=== PATIENT | female | born 1965 | race African-American/Black ===

== ENCOUNTER 2024-04-29 16:53 | Inpatient (IN) | payer OTHER ==
[2024-04-29 18:37] VITALS: BMI 17.8
[2024-04-29] MEDS ORDERED: hydrOXYzine PAMOATE 25 MG CAPSULE (FP) PO PRN (19:02)
[2024-04-29] MEDS ORDERED: POLYETHYLENE GLYCOL (HEALTHYLAX) 3350 17 GM PACKET PO PRN (19:02)
[2024-04-29] MEDS ORDERED: MAGNESIUM HYDROX 2400MG/30ML ORAL SUSPENSION 30 ML CUP PO PRN (19:02)
[2024-04-29] MEDS ORDERED: LOPERAMIDE HCL 2 MG CAPSULE PO PRN (19:02)
[2024-04-29] MEDS ORDERED: ACETAMINOPHEN 325 MG TABLET (FP) PO PRN (19:02)
[2024-04-29] MEDS ORDERED: guaiFENesin 600 MG TABLET.ER (FP) PO PRN (19:02)
[2024-04-29] MEDS ORDERED: DICYCLOMINE HCL 10 MG CAPSULE PO PRN (19:02)
[2024-04-29] MEDS ORDERED: IBUPROFEN 400 MG TABLET (FP) PO PRN (19:02)
[2024-04-29] MEDS ORDERED: BENZONATATE 200 MG CAPSULE PO PRN (19:02)
[2024-04-29] MEDS ORDERED: NALOXONE (NARCAN) HCL 4 MG/0.1 ML SPRAY NS PRN (19:02)
[2024-04-29] MEDS ORDERED: ONDANSETRON *ODT* 4 MG TABLET SL PRN (19:02)
[2024-04-29] MEDS ORDERED: BENZOCAINE/MENTHOL (CHLORASEPTIC ) LOZENGE MM PRN (19:02)
[2024-04-29] MEDS ORDERED: P-EPHED 60MG/TRIPROLIDI 2.5MG TABLET PO PRN (19:02)
[2024-04-29] MEDS ORDERED: MAG HYDROX/AL HYDROX/SIMETH 30 ML UNIT-DOSE CUP PO PRN (19:02)
[2024-04-29] MEDS ORDERED: BISMUTH SUBSALICYLATE 524 MG/30 ML PO PRN (19:02)
[2024-04-29] MEDS: THIAMINE 100 MG TABLET PO SCH (21:38)
[2024-04-29] MEDS: MELATONIN 5 MG TABLETS PO SCH (21:38)
[2024-04-29] MEDS: METHOCARBAMOL 500 MG TABLET PO PRN (21:38)
[2024-04-30] MEDS: methaDONE HCL 10 MG TABLET PO ONE (09:26)
[2024-04-30] MEDS: cloNIDine HCL 0.1 MG TABLET PO SCH (09:27)
[2024-04-30] MEDS: BICTEGRAV/EMTRICIT/TENOFOV (BIKTARVY) 50-200-25 MG TABLET PO SCH (09:27)
[2024-04-30] MEDS: PRENATAL VITAMINS W/ FOLIC ACID TABLET (FP) PO SCH (09:28)
[2024-04-30] MEDS ORDERED: methaDONE HCL 10 MG TABLET PO PRN (10:35)
[2024-04-30 14:38] LABS: POTASSIUM 3.9 mmol/L (3.5-5.1)
[2024-04-30 14:39] LABS: HEMATOCRIT 37.3 % (32.4-45.2); HEMOGLOBIN 11.6 GM/dL (10.7-15.3); MCH 26.4 pg (25.7-33.7); MCHC 31.1 g/dl (32.0-36.0); MEAN PLT VOLUME 8.8 fl (7.5-11.1); PLATELET COUNT 203 10^3/uL (134-434); RBC 4.39 M/mm3 (3.60-5.2); WHITE BLOOD COUNT 3.7 K/mm3 (4.0-10.0)
[2024-04-30 14:40] LABS: CALCIUM 9.1 mg/dL (8.5-10.1)
[2024-04-30 14:44] LABS: CREATININE 0.8 mg/dL (0.55-1.3)
[2024-04-30 14:45] LABS: BILIRUBIN,TOTAL 0.3 mg/dL (0.2-1); TOT PROT 7.4 g/dl (6.4-8.2)
[2024-05-01] MEDS: methaDONE 40 MG, methaDONE 10 MG PO ONE (10:09)
[2024-05-01] MEDS: NICOTINE POLACRILEX 2 MG LOZENGE BC PRN (17:26)
[2024-05-01] MEDS: NICOTINE POLACRILEX 2 MG GUM BUC PRN (18:11)
[2024-05-01] MEDS: IBUPROFEN 600 MG TABLET (FP) PO PRN (18:12)
[2024-05-01 21:03] VITALS: RESP 16
[2024-05-02] MEDS ORDERED: cloNIDine HCL 0.1 MG TABLET PO PRN
[2024-05-02 07:08] VITALS: PULSE 60
[2024-05-02 09:17] VITALS: BP 127/79; TEMP 98.2
[2024-05-02] MEDS: methaDONE 40 MG, methaDONE 20 MG PO ONE (10:09)
[2024-05-02] MEDS: NALOXONE (NYS OPIOID OVERDOSE PROGRAM) 4 MG/0.1 ML SPRAY NS SCH (10:57)
[2024-05-03] MEDS ORDERED: methaDONE 40 MG, methaDONE 30 MG PO ONE (10:00)
[2024-05-04] MEDS ORDERED: methaDONE HCL 40 MG DISPERSABLE TABLET PO ONE (10:00)
[2024-05-05] MEDS ORDERED: methaDONE 80 MG, methaDONE 10 MG PO ONE (10:00)
== END 2024-05-02 11:01 | disposition left against medical advice (07) | DRG 770 ==
LOC: YASAS 16:53 → EDSEX 16:53 → Y6N 20:54
PROVIDERS: ADMIT Allergy & Immunology; ATTEND Allergy & Immunology
PROC: HZ2ZZZZ Detoxification Services for Substance Abuse Treatment (ICD-10-PCS; principal; 2024-04-29)
DX: F11.23 Opioid dependence with withdrawal (principal); F14.20 Cocaine dependence, uncomplicated; F17.210 Nicotine dependence, cigarettes, uncomplicated; F43.10 Post-traumatic stress disorder, unspecified; F32.A Depression, unspecified; Z21 Asymptomatic human immunodeficiency virus [HIV] infection status; Z79.899 Other long term (current) drug therapy
CPT/HCPCS: 36415; 80053; 80305; 80307; 85027; 86780; 93005; 93010